=== PATIENT | female | born 1970 | race Caucasian/White ===

== ENCOUNTER → 2018-05-25 | Outpatient (CLI) | payer BC ==
[~2018-05-25] MED LIST: ACET500; ATEN25 PO; ATEN50 PO; Budeprion Sr150 MG PO; CENTRUM COMPLE1 EACH PO; CHOL10002 PO; CYCL10 PO; Desyrel50 MG; FENO48 PO; Fenofibrate134 MG PO; HYDACE10B PO; HYDACE5; HYDACE5 PO; IBUP800 PO; Naprosyn500 MG PO; Norco 5-325 Ta1 EACH PO; TRAM50 PO; VENLAFAXINE HC150 MG PO; [UNRECOGNIZED DRUG - OTHER] PO
== END | disposition home or self-care (01) ==
LOC: LAB SHORT 19:06 → LAB 19:06
DX: R53.83 Other fatigue (principal); Z79.899 Other long term (current) drug therapy
CPT/HCPCS: 82306

== ENCOUNTER → 2023-01-11 | Outpatient (CLI) | payer MEDICARE, OTHER ==
[2023-01-12 11:14] LABS: Candida species (DNA Probe) Negative (NEGATIVE); G. vaginalis (DNA Probe) Negative (NEGATIVE); T. vaginalis (DNA Probe) Positive (NEGATIVE)
[2023-01-14 12:07] LABS: CHLAMYDIA BY NAA Negative (Negative); GONOCOCCUS BY NAA Negative (Negative); TRICH VAG BY NAA Positive (Negative)
== END ==
LOC: LAB SHORT 18:51 → LAB 18:51
PROVIDERS: Registered Nurse Community Health
DX: N89.8 Other specified noninflammatory disorders of vagina (principal); L29.2 Pruritus vulvae
CPT/HCPCS: 87480; 87491; 87510; 87591; 87660; 87661

== ENCOUNTER 2023-04-04 11:30 | Emergency (ER) | payer MEDICARE, OTHER ==
[~2023-04-04] VITALS: Ht 157.5 cm; Wt 77.1 kg
[2023-04-04 11:54] VITALS: BP 148/105
[2023-04-04] MEDS ORDERED: PRED20 PO (12:39)
[2023-04-04] MEDS ORDERED: FAMO20 PO (12:39)
[2023-04-04] MEDS ORDERED: LOSA50 PO (12:54)
[2023-04-04] MEDS ORDERED: ATEN50 PO (12:54)
== END 2023-04-04 12:52 | disposition home or self-care (01) ==
LOC: ER 11:30
DX: L23.9 Allergic contact dermatitis, unspecified cause (principal); I10 Essential (primary) hypertension; F17.200 Nicotine dependence, unspecified, uncomplicated
CPT/HCPCS: 99283